=== PATIENT | male | born 1980 | race Hispanic/Latino ===

== ENCOUNTER → 2020-09-01 | Day surgery (SDC) | payer BC ==
[~2020-09-01] VITALS: Ht 177.8 cm; Wt 81.6 kg
[~2020-09-01] MED LIST: ACETAMINOPHEN/CODEINE 300MG - 30MG TAB ONE; BUPIVACAINE 0.25% 30ML SDV ONE; CEFAZOLIN SOD 1 GM VIAL IV SCH; CEFAZOLIN SOD 1 GM/NS 50ML 50 ML IV ONE; DEXAMETHASONE SOD PHOS INJ 4 MG/ML VIAL ONE; DIPHTH/TETANUS/ACEL. PERTUSSIS 0.5 ML SYR IM ONE; FENTANYL CITRATE/PF 100MCG/2 ML INJ ONE; LIDOCAINE 1% W/EPINEPHRINE 20 ML VIAL ONE; LIDOCAINE HCL 2% LOCAL INJ 5 ML SDV VIAL INJ ONE; MIDAZOLAM HCL 2 MG/2 ML VIAL ONE; MUPIROCIN 2% OINT 22 GM TUBE ONE; ONDANSETRON HCL INJ 2MG/ML 2ML 2 MG/ML VIAL ONE; PROPOFOL IV EMULSION 10 MG/ML 20 ML VIAL ONE; SEVOFLURANE INHAL SOLN 250 ML PEN BTL ONE; TETANUS/DIPHTHERIA TOX ADULT 0.5 ML SYR ONE; TYLENOL # 31 EA PO
[2020-09-01 16:40] VITALS: BP 145/84
== END | disposition home or self-care (01) ==
LOC: FSED 13:07 → EDSTATUS 16:53 → OR 16:54
PROVIDERS: ATTEND Internal Medicine
DX: S51.842A Puncture wound with foreign body of left forearm, initial encounter (principal); Z23 Encounter for immunization; I10 Essential (primary) hypertension; E78.5 Hyperlipidemia, unspecified; E11.9 Type 2 diabetes mellitus without complications; W45.8XXA Other foreign body or object entering through skin, initial encounter; Y93.H2 Activity, gardening and landscaping; Y99.8 Other external cause status; Z79.84 Long term (current) use of oral hypoglycemic drugs; Z87.891 Personal history of nicotine dependence
CPT/HCPCS: 20103; 73090; 80048; 85025; 90471; 90714; 99284; J0690; J1100; J2001; J2250; J2405; J2704; J3010